=== PATIENT | female | born 1995 | race Caucasian/White ===

== ENCOUNTER 2017-03-28 09:08 | Inpatient (IN) | payer MEDICAID ==
[~2017-03-28] VITALS: Ht 154.9 cm; Wt 54.4 kg
[2017-03-28] MEDS ORDERED: ACETAMINOPHEN 325MG TABLET PO STA (09:29)
[2017-03-28 09:57] LABS: BASOPHILS % 0.5 % (0.0-2.0); HEMOGLOBIN. 11.6 g/dL (12.0-16.0); LYMPHOCYTES % 30.1 % (20.0-50.0); MEAN CORPUSCULAR HEMOGLOBIN 27.8 pg (28.0-32.0); MEAN CORPUSCULAR VOLUME 83.8 fL (81.0-99.0); MEAN PLATELET VOLUME 6.7 fl (7.4-10.4); MONOCYTES % 7.6 % (2.0-8.0); NEUTROPHILS % 59.8 % (40.0-76.0); PLATELET 267 x1000/uL (130-400); RED BLOOD CELL COUNT 4.17 mill/uL (4.2-5.4); RED CELL DISTRIBUTION WIDTH 15.1 % (11.6-14.6)
[2017-03-28 10:13] LABS: CARBON DIOXIDE 31 mEq/L (21-32); CHLORIDE 104 mEq/L (98-107)
[2017-03-28 10:16] LABS: B-HCG QUANTITATIVE 319 mIU/mL (<3)
[2017-03-28] MEDS ORDERED: SODIUM CHLORIDE 0.9% 1,000 ML IV ONE (11:11)
[2017-03-28 11:23] LABS: CLARITY URINE CLOUDY (CLEAR); COLOR URINE YELLOW (YELLOW); GLUCOSE URINE NEGATIVE (NEGATIVE); KETONES URINE NEGATIVE (NEGATIVE); LEUKOCYTE ESTERASE URINE 2+ (NEGATIVE); NITRITE URINE NEGATIVE (NEGATIVE); OCCULT BLOOD URINE 3+ (NEGATIVE); PH URINE 5.5 (4.5-8.0); PROTEIN URINE NEGATIVE (NEGATIVE); SPECIFIC GRAVITY URINE 1.029 (1.005-1.030); UROBILINOGEN URINE 0.2 E.U./dL (0.2-1.0)
[2017-03-28 11:47] LABS: PROTHROMBIN TIME 10.7 sec
[2017-03-28] MEDS ORDERED: MORPHINE SULFATE 4 MG/ML CPJ (NOT FOR IM USE) IV ONE (12:15)
[2017-03-28] MEDS ORDERED: ONDANSETRON HCL 4MG/2ML VIAL IV ONE (12:15)
[2017-03-28] MEDS ORDERED: NITROFURANTOIN 100MG M/M CAPSULE PO NR (13:00)
[2017-03-28 17:17] VITALS: BP 93/62
[2017-03-28] MEDS ORDERED: FERR-63 PO (17:32)
[2017-03-28] MEDS ORDERED: P20 PO (17:32)
[2017-03-28 20:00] VITALS: BP 114/72
[2017-03-28] MEDS ORDERED: ACETAMINOPHEN WITH CODEINE 300/30MG TABLET PO PRN (22:15)
[2017-03-28] MEDS ORDERED: ACETAMINOPHEN 500MG TABLET PO PRN (22:15)
[2017-03-28] MEDS ORDERED: DEXT 5%/LACTATED RINGERS 1,000 ML IV SCH (22:17)
[2017-03-28] MEDS: DEXT 5%/LACTATED RINGERS 1,000 ML IV SCH (23:28)
[2017-03-28] MEDS: ACETAMINOPHEN WITH CODEINE 300/30MG TABLET PO PRN (23:29)
[2017-03-29] VITALS: BP 100/68
[2017-03-29 00:02] LABS: HCG SCREEN POSITIVE
[2017-03-29 04:00] VITALS: BP 104/63
[2017-03-29] MEDS: DEXT 5%/LACTATED RINGERS 1,000 ML IV SCH ×3 (04:57→20:15)
[2017-03-29 07:04] LABS: BASOPHILS % 0.6 % (0.0-2.0); EOSINOPHILS % 3.5 % (0.0-5.0); HEMATOCRIT. 32.8 % (36.0-48.0); HEMOGLOBIN. 10.9 g/dL (12.0-16.0); LYMPHOCYTES % 33.3 % (20.0-50.0); MEAN CORPUSCULAR HEMOGLOBIN 28.1 pg (28.0-32.0); MEAN CORPUSCULAR VOLUME 84.5 fL (81.0-99.0); MEAN PLATELET VOLUME 7.3 fl (7.4-10.4); MONOCYTES % 8.9 % (2.0-8.0); NEUTROPHILS % 53.7 % (40.0-76.0); PLATELET 248 x1000/uL (130-400); RED BLOOD CELL COUNT 3.89 mill/uL (4.2-5.4); RED CELL DISTRIBUTION WIDTH 15.1 % (11.6-14.6)
[2017-03-29 08:00] VITALS: BP 95/65
[2017-03-29 09:32] LABS: HCG SCREEN POSITIVE
[2017-03-29 12:00] VITALS: BP 95/61
[2017-03-29] MEDS: ACETAMINOPHEN WITH CODEINE 300/30MG TABLET PO PRN (13:37)
[2017-03-29 16:00] VITALS: BP 105/69
[2017-03-29 20:00] VITALS: BP 109/70
[2017-03-30] VITALS: BP 103/59
[2017-03-30 04:00] VITALS: BP 129/87
[2017-03-30] MEDS: DEXT 5%/LACTATED RINGERS 1,000 ML IV SCH (07:36)
[2017-03-30 08:00] VITALS: BP 108/61
[2017-03-30 09:54] VITALS: BP 108/61
[2017-03-31 04:13] LABS: CHLAMYDIA TRACHOMATIS NAA Negative (Negative); NEISSERIA GONORRHOEAE NAA Negative (Negative)
== END 2017-03-30 11:25 | disposition still patient (30) | DRG 564 ==
LOC: ER 09:37 → 6EST 11:43 → EDBEDREQ 12:24 → ENRESERV 15:24 → CANBEDREQ 16:16
PROVIDERS: ADMIT Obstetrics & Gynecology; ATTEND Obstetrics & Gynecology
DX: O03.6 Delayed or excessive hemorrhage following complete or unspecified spontaneous abortion (principal); O00.90 Unspecified ectopic pregnancy without intrauterine pregnancy; Z88.0 Allergy status to penicillin; O99.519 Diseases of the respiratory system complicating pregnancy, unspecified trimester; O23.40 Unspecified infection of urinary tract in pregnancy, unspecified trimester
CPT/HCPCS: 36415; 76830; 76856; 80048; 81001; 81025; 84702; 84703; 85025; 85610; 85730; 86850; 86900; 86920; 87210; 87491; 87591; 93005; 96361; 96374; 96375; 99285; J2270; J2405; J7030; J7121

== ENCOUNTER 2017-08-07 23:26 | Emergency (ER) | payer MEDICAID ==
[~2017-08-07] VITALS: Ht 157.5 cm; Wt 56.0 kg
[~2017-08-07 23:26] MED LIST: FERR-63 PO; P20 PO
[2017-08-08 01:23] LABS: CLARITY URINE CLEAR (CLEAR); COLOR URINE YELLOW (YELLOW); GLUCOSE URINE NEGATIVE (NEGATIVE); KETONES URINE NEGATIVE (NEGATIVE); LEUKOCYTE ESTERASE URINE NEGATIVE (NEGATIVE); NITRITE URINE NEGATIVE (NEGATIVE); OCCULT BLOOD URINE 2+ (NEGATIVE); PROTEIN URINE NEGATIVE (NEGATIVE); UROBILINOGEN URINE 0.2 E.U./dL (0.2-1.0)
[2017-08-08] MEDS ORDERED: KETOROLAC 30MG/ML VIAL IV NR (02:49)
[2017-08-08] MEDS ORDERED: SODIUM CHLORIDE 0.9% 500 ML IV NR (02:49)
[2017-08-08] MEDS ORDERED: ONDANSETRON HCL 4MG/2ML VIAL IV NR (02:49)
[2017-08-08 03:48] LABS: BASOPHILS % 0.6 % (0.0-2.0); EOSINOPHILS % 3.5 % (0.0-5.0); HEMATOCRIT. 35.7 % (36.0-48.0); HEMOGLOBIN. 11.9 g/dL (12.0-16.0); LYMPHOCYTES % 29.8 % (20.0-50.0); MEAN CORPUSCULAR HEMOGLOBIN 28.3 pg (28.0-32.0); MEAN CORPUSCULAR VOLUME 84.6 fL (81.0-99.0); MEAN PLATELET VOLUME 7.1 fl (7.4-10.4); NEUTROPHILS % 57.1 % (40.0-76.0); PLATELET 246 x1000/uL (130-400); RED BLOOD CELL COUNT 4.22 mill/uL (4.2-5.4); RED CELL DISTRIBUTION WIDTH 12.9 % (11.6-14.6)
[2017-08-08 04:02] LABS: CARBON DIOXIDE 28 mEq/L (21-32); CHLORIDE 105 mEq/L (98-107)
[2017-08-08] MEDS ORDERED: SODIUM CHLORIDE 0.9% 500 ML IV ONE (04:08)
[2017-08-08 05:31] VITALS: BP 124/66
== END 2017-08-08 06:18 | disposition home or self-care (01) ==
LOC: ER 23:54
DX: N94.6 Dysmenorrhea, unspecified (principal); R11.2 Nausea with vomiting, unspecified; R42 Dizziness and giddiness; J45.909 Unspecified asthma, uncomplicated; Z88.0 Allergy status to penicillin
CPT/HCPCS: 36415; 80053; 81001; 81025; 85025; 96361; 96374; 96375; 99284; J1885; J2405; J7040; Z7610